=== PATIENT | male | born 1995 | race Caucasian/White ===

== ENCOUNTER 2017-05-11 20:26 | Emergency (ER) | payer BC ==
[~2017-05-11] VITALS: Ht 188 cm; Wt 120.2 kg
[~2017-05-11 20:26] MED LIST: ASPIRIN EC81 MG PO
== END 2017-05-11 22:30 | disposition home or self-care (01) ==
LOC: ED 20:26
PROC: 0HQFXZZ Repair Right Hand Skin, External Approach (ICD-10-PCS; principal; 2017-05-11)
DX: S61.411A Laceration without foreign body of right hand, initial encounter (principal); F17.200 Nicotine dependence, unspecified, uncomplicated; W25.XXXA Contact with sharp glass, initial encounter
CPT/HCPCS: 12001; 73130; 99283

== ENCOUNTER → 2022-12-28 | Emergency (ER) | payer OTHER ==
[~2022-12-28] VITALS: Ht 188 cm; Wt 120.2 kg
[~2022-12-28] MED LIST changes: +EPIPEN 2-P0.3 MG/0.3 IM; +PREDNISONE20 MG PO
[2022-12-28 22:34] VITALS: BP 139/86
--- NOTE | 2022-12-29 18:10 | EKG ---
[facility] [address] [facility] [place] [address] Signed Normal sinus rhythm Normal ECG No previous ECGs available Confirmed by SHRUTHI RODRÍGUEZ MD ([id number] on 12/29/2022 6:10:23 PM Electronically Signed By: SHRUTHI RODRÍGUEZ MD 12/29/221809 PATIENT NAME: WINSTON HARRIS Electrocardiogram DATE OF : [birth year] PHYSICIAN: SHRUTHI RODRÍGUEZ MD REPORT #: [id number] REPORT IS CONFIDENTIAL AND NOT TO BE RELEASED WITHOUT AUTHORIZATION
== END ==
LOC: ED 19:36
DX: T78.2XXA Anaphylactic shock, unspecified, initial encounter (principal); F17.200 Nicotine dependence, unspecified, uncomplicated
CPT/HCPCS: 36415; 71045; 80053; 83735; 84484; 85025; 85379; 93005; 93010; A9270; J0171; J1100; J1200; J1885; J7121